=== PATIENT | female | born 1980 | race Caucasian/White ===

== ENCOUNTER 2020-06-27 14:20 | Outpatient (CLI) | payer OTHER | END 2020-06-27 14:21 | disposition home or self-care (01) | LOC: LAB 14:20 | PROVIDERS: ATTEND Obstetrics & Gynecology | DX: D35.2 Benign neoplasm of pituitary gland (principal) | CPT/HCPCS: 36415; 84146 ==

== ENCOUNTER 2020-08-07 08:00 | Outpatient (CLI) | payer OTHER | END 2020-08-07 23:59 | disposition home or self-care (01) | LOC: LAB.WC 08:00 | PROVIDERS: ATTEND Obstetrics & Gynecology | DX: Z36.85 Encounter for antenatal screening for Streptococcus B (principal) | CPT/HCPCS: 87797 ==

== ENCOUNTER 2020-08-12 09:23 | Outpatient (CLI) | payer OTHER ==
[2020-08-12 09:43] VITALS: BP 117/72
--- NOTE | 2020-09-02 20:07 | PROCEDURE REPORT ---
- HPI Current EDU 09/03/20 Gestation 36 Weeks and 6 Days 3 Para 1 Vital Signs Temperature 98.6 F 08/12/20 09:42 Heart Rate 102 H 08/12/20 09:42 Respiratory Rate 18 08/12/20 09:42 Blood Pressure 117/72 08/12/20 09:42 O2 Saturation 98 08/12/20 09:42 Temperature 98.6 F 08/12/20 09:42 Heart Rate 102 H 08/12/20 09:42 Respiratory Rate 18 08/12/20 09:42 Blood Pressure 117/72 08/12/20 09:42 O2 Saturation 98 08/12/20 09:42 - NST Procedure NST Procedure Start Date 08/12/20 Start Time 09:30 Stop Time 10:29 Vibroacoustic Stimulation Used Yes: x1 Patient States Movement Yes EFM 135 mod maria d 15x15 accels no decels TOCO: quiet - Results and Plan Findings/Impression: 40 yo at 36+6 wga with a affected by BMI> 50, AGA, and pituitary adenoma here of rNAT Cat I tracing Cont with twice weekly NST and weekly ROSALIND DX: AGA BMI> 50 pituitary adenoma IUP at 36+6 wga
== END 2020-08-12 10:45 | disposition home or self-care (01) ==
LOC: WFO 09:23 → FBP 09:29 → WFO 10:45
PROVIDERS: ATTEND Obstetrics & Gynecology
DX: O99.283 Endocrine, nutritional and metabolic diseases complicating pregnancy, third trimester (principal); D44.3 Neoplasm of uncertain behavior of pituitary gland; Z3A.36 36 weeks gestation of pregnancy
CPT/HCPCS: 59025

== ENCOUNTER 2020-08-15 15:37 | Outpatient (CLI) | payer OTHER ==
[2020-08-15 15:56] VITALS: BP 123/70
--- NOTE | 2020-08-15 16:52 | PROCEDURE REPORT ---
- HPI Diagnosis/Indication for NST: Other (AMA) Current EDU 09/03/20 Gestation 37 Weeks and 2 Days 3 Para 1 Vital Signs Temperature 36.6 C 08/15/20 15:55 Heart Rate 86 08/15/20 15:55 Respiratory Rate 18 08/15/20 15:55 Blood Pressure 123/70 08/15/20 15:55 O2 Saturation 99 08/15/20 15:55 Temperature 36.6 C 08/15/20 15:55 Heart Rate 86 08/15/20 15:55 Respiratory Rate 18 08/15/20 15:55 Blood Pressure 123/70 08/15/20 15:55 O2 Saturation 99 08/15/20 15:55 - NST Procedure NST Procedure Start Date 08/15/20 Start Time 15:47 Stop Time 16:32 Vibroacoustic Stimulation Used No Patient States Movement Yes - Results and Plan Findings/Impression: REACTIVE NST Plan: CONTINUE TESTING
== END 2020-08-15 16:35 | disposition home or self-care (01) ==
LOC: WFO 15:37 → FBP 15:42 → WFO 16:35
PROVIDERS: ATTEND Obstetrics & Gynecology
DX: O09.523 Supervision of elderly multigravida, third trimester (principal); Z3A.37 37 weeks gestation of pregnancy
CPT/HCPCS: 59025

== ENCOUNTER 2020-08-19 12:53 | Outpatient (CLI) | payer OTHER ==
[2020-08-19 13:23] VITALS: BP 137/57
--- NOTE | 2020-09-02 20:12 | PROCEDURE REPORT ---
- HPI Diagnosis/Indication for NST: Other Current EDU 09/03/20 Gestation 37 Weeks and 6 Days 2 Para 1 Vital Signs Temperature 98.3 F 08/19/20 13:22 Heart Rate 94 08/19/20 13:22 Respiratory Rate 18 08/19/20 13:22 Blood Pressure 137/57 H 08/19/20 13:22 Temperature 98.3 F 08/19/20 13:22 Heart Rate 94 08/19/20 13:22 Respiratory Rate 18 08/19/20 13:22 Blood Pressure 137/57 H 08/19/20 13:22 O2 Saturation - NST Procedure NST Procedure Start Date 08/19/20 Start Time 13:07 Stop Time 13:37 Vibroacoustic Stimulation Used No EFM 150 mod maria d 15x15 accels no decels TOCO: quiet - Results and Plan Findings/Impression: 40 yo at 37+6 wga with complicated by BMI>50, pituitary adenoma, AMA here for NST Cat I tracing Cont with twice weekly NST and weekly ROSALIND per primary OB provider plan
== END 2020-08-19 13:40 | disposition home or self-care (01) ==
LOC: WFO 12:53 → FBP 12:59 → WFO 13:40
PROVIDERS: ATTEND Obstetrics & Gynecology
DX: O99.283 Endocrine, nutritional and metabolic diseases complicating pregnancy, third trimester (principal); D44.3 Neoplasm of uncertain behavior of pituitary gland; O09.523 Supervision of elderly multigravida, third trimester; Z3A.37 37 weeks gestation of pregnancy
CPT/HCPCS: 59025

== ENCOUNTER 2020-08-22 14:51 | Outpatient (CLI) | payer OTHER ==
[2020-08-22 17:33] LABS: BASOPHILS % (AUTO) 0.2 %; EOSINOPHILS # (AUTO) 0.1 10^3/uL (0.0-0.7); HCT - HEMATOCRIT 35.6 % (37.0-47.0); HGB - HEMOGLOBIN 11.2 g/dL (12.0-16.0); LYMPHOCYTES # (AUTO) 1.9 10^3/uL (1.5-3.5); LYMPHOCYTES % (AUTO) 13.8 %; MEAN CORPUSCULAR HGB CONC 31.5 g/dL (32.0-36.0); MEAN CORPUSCULAR VOLUME 82.8 fL (81.0-99.0); MEAN PLATELET VOLUME 9.8 fL (7.9-10.8); MONOCYTES # (AUTO) 0.8 10^3/uL (0.0-1.0); NEUTROPHILS # (AUTO) 10.4 10^3/uL (1.5-6.6); PLT - PLATELET COUNT 308 10^3/uL (130-450); RED CELL DISTRIBUTION WIDTH 14.1 % (12.0-15.0); WHITE BLOOD COUNT 13.4 x10^3/uL (4.8-10.8)
[2020-08-22 17:43] LABS: ALBUMIN/GLOBULIN RATIO 0.8 (1.0-2.2); BILIRUBIN,TOTAL 0.5 mg/dL (0.2-1.0); CALCIUM 9.1 mg/dL (8.5-10.3); CREATININE 0.6 mg/dL (0.4-1.0); POTASSIUM 3.8 mmol/L (3.5-5.0); TOTAL PROTEIN 6.7 g/dL (6.7-8.2)
[2020-08-22 17:56] LABS: CREATININE,URINE 38.2 mg/dL
[2020-08-22 18:00] LABS: TOTAL PROTEIN,URINE TIMED < 6 mg/dL
[2020-08-22 18:09] VITALS: BP 125/63
--- NOTE | 2020-08-22 18:49 | PROVIDER PROGRESS NOTE ---
- HPI Chief Complaint: Hypertension/PIH Current : Current EDU 09/03/20 Gestation 38 Weeks and 2 Days 3 Para 1 Vital Signs Heart Rate 94 08/22/20 15:10 Respiratory Rate 17 08/22/20 15:10 Blood Pressure 145/73 H 08/22/20 15:10 O2 Saturation 100 08/22/20 15:10 Temperature 98.6 F 08/22/20 15:14 Heart Rate 92 08/22/20 17:09 Respiratory Rate 17 08/22/20 17:09 Blood Pressure 125/63 08/22/20 18:09 O2 Saturation 100 08/22/20 15:10 - Exam 40 yo at 38 2/7 weeks with Elevated blood pressure in the clinic today. Patient denies headache, abdominal pain or right upper quadrant pain. Patient reports good movement. Patient denies SROM, vaginal bleeding or contractions. O-132/84 was first blood pressure on arrival to L&D, 125/63 and 114/60. General: Patient is lying comfortably in triage bed and is not in any acute distress. Chest: CLear to auscultation. Good breath sounds in all harris. Heart: RRR without murmur or gallop Abdomen: Soft, non-tender to palpation, gravid. Extremities: No pedal or pre-tibial edema. Neuro: DTR's could no be illicited, definitely not hyper-reflexic Labs today were within normal range. Protein/Creat ratio: not detectable. Monitor strip Baseline 135 with moderate variability and accelerations. No decelerations. No contractions. Category I monitor strip and Reactive NST. Dr. Archuleta will contact patient in the morning with a plan for her induction of labor next Wednesday. - Procedures NST Procedure: NST Procedure Start Date 08/22/20 Start Time 15:00 Stop Time 15:55 Vibroacoustic Stimulation Used No Patient States Movement Yes
== END 2020-08-22 18:30 | disposition home or self-care (01) ==
LOC: WFO 14:51 → FBP 14:54 → WFO 15:55
PROVIDERS: ATTEND Obstetrics & Gynecology
DX: O13.3 Gestational [pregnancy-induced] hypertension without significant proteinuria, third trimester (principal); Z3A.38 38 weeks gestation of pregnancy
CPT/HCPCS: 36415; 59025; 80053; 82570; 84146; 84156; 85025; 86787; 87522; 99214; 99215

== ENCOUNTER 2020-08-24 09:29 | Outpatient (CLI) | payer OTHER ==
[2020-08-24 09:48] VITALS: BP 118/70
--- NOTE | 2020-08-24 10:40 | PROCEDURE REPORT ---
- HPI Diagnosis/Indication for NST: Gestational Hypertension Current EDU 09/03/20 Gestation 38 Weeks and 4 Days 3 Para 1 Vital Signs Temperature 98.4 F 08/24/20 09:45 Heart Rate 98 08/24/20 09:45 Respiratory Rate 18 08/24/20 09:45 Blood Pressure 118/70 08/24/20 09:45 O2 Saturation 98 08/24/20 09:45 Temperature 98.4 F 08/24/20 09:45 Heart Rate 98 08/24/20 09:45 Respiratory Rate 18 08/24/20 09:45 Blood Pressure 118/70 08/24/20 09:45 O2 Saturation 98 08/24/20 09:45 Patient is doing well. Patient is resting comfortably in triage bed. Patient denies SROM, vaginal bleeding or contractions. NST: Baselin FHR is 140 with moderate variability and Accelerations 15X15 times 2. No decelerations. No contractions. Category I monitor strip and meets Reactive Criteria for NST. - NST Procedure NST Procedure Start Date 08/24/20 Start Time 09:40 Stop Time 10:17 Vibroacoustic Stimulation Used No Patient States Movement Yes - Results and Plan Findings/Impression: Reactive NST, Category I monitor strip. Plan: Patient is scheduled on Wednesday for another NST. Labor precautions and High B lood pressure signs and symptoms precautions.
== END 2020-08-24 10:30 | disposition home or self-care (01) ==
LOC: WFO 09:29 → FBP 09:32 → WFO 10:30
PROVIDERS: ATTEND Obstetrics & Gynecology
DX: O13.3 Gestational [pregnancy-induced] hypertension without significant proteinuria, third trimester (principal); Z3A.38 38 weeks gestation of pregnancy
CPT/HCPCS: 59025

== ENCOUNTER 2020-08-26 09:28 | Outpatient (CLI) | payer OTHER ==
[2020-08-26 10:01] VITALS: BP 120/66
--- NOTE | 2020-08-26 10:47 | PROCEDURE REPORT ---
- HPI Current [facility] 09/03/20 Gestation 38 Weeks and 6 Days 3 Para 1 Vital Signs Temperature 98.6 F 08/26/20 09:39 Heart Rate 97 08/26/20 09:39 Respiratory Rate 18 08/26/20 09:39 Blood Pressure 120/66 08/26/20 09:39 O2 Saturation 97 08/26/20 09:39 Temperature 98.6 F 08/26/20 09:39 Heart Rate 97 08/26/20 09:39 Respiratory Rate 18 08/26/20 09:39 Blood Pressure 120/66 08/26/20 09:39 O2 Saturation 97 08/26/20 09:39 - NST Procedure NST Procedure Start Date 08/26/20 Start Time 09:39 Stop Time 10:17 Vibroacoustic Stimulation Used No Patient States Movement Yes Patient presents for NST. Patient is 38 6/7 weeks todayl. Discussed patient with Dr. Gamble. Patient has had normal range blood pressures and Protein/Creatinine ratio was undetectable last . All other labs were normal. Patient reports good movement. Patient denies contractions, SROM or vaginal bleeding. Patient states she had some swelling in her feet yesterday, but she was sitting for a prolonged period of time sorting baby clothes. She had a slight headache that resolved after she drank water. Discussed with patient since everything appears normal she does not meet criteria for "Medical Induction". Patient will continue with twice weekly NSTs and continue to be monitored. O-BP today is 122/60. NST: Baseline heart rate is 140 with moderate variability. Accelerations are present. No decelerations. No contractions seen. Category I and Reactive monitor strip. A-IUP 38 6/7 Blood pressure are no longer elevated. Normal lab. P-Continue twice weekly NST and blood pressure monitoring. Patient given labor precautions.
== END 2020-08-26 10:35 | disposition home or self-care (01) ==
LOC: WFO 09:28 → FBP 09:32 → WFO 10:35
PROVIDERS: ATTEND Obstetrics & Gynecology
DX: O09.523 Supervision of elderly multigravida, third trimester (principal); O36.63X0 Maternal care for excessive fetal growth, third trimester, not applicable or unspecified; O99.213 Obesity complicating pregnancy, third trimester; O99.353 Diseases of the nervous system complicating pregnancy, third trimester; D49.7 Neoplasm of unspecified behavior of endocrine glands and other parts of nervous system; O99.413 Diseases of the circulatory system complicating pregnancy, third trimester; I87.2 Venous insufficiency (chronic) (peripheral); Z3A.38 38 weeks gestation of pregnancy
CPT/HCPCS: 59025

== ENCOUNTER 2020-08-29 13:02 | Outpatient (CLI) | payer OTHER ==
[2020-08-29 13:14] VITALS: BP 127/67
--- NOTE | 2020-08-29 13:49 | PROCEDURE REPORT ---
- HPI Diagnosis/Indication for NST: Gestational Hypertension Vital Signs Temperature 98.2 F 08/29/20 13:12 Heart Rate 97 08/29/20 13:12 Respiratory Rate 20 08/29/20 13:12 Blood Pressure 127/67 08/29/20 13:12 O2 Saturation 100 08/29/20 13:12 Temperature 98.2 F 08/29/20 13:12 Heart Rate 97 08/29/20 13:12 Respiratory Rate 20 08/29/20 13:12 Blood Pressure 127/67 08/29/20 13:12 O2 Saturation 100 08/29/20 13:12 Patient is 40yo 39 2/7 weeks, Good movement. No regular contractions. Patient denies SROM or vaginal bleeding. BP today is 127/67. NST: Baseline is 140 with moderate variability and accelerations. No decelerations. Small amount of uterine irritability present. Patient is not feeling contractions at present time. 15X15 Accelerations. Category I monitor strip. Reactive NST. - NST Procedure NST Procedure Start Time 09:39 Stop Time 10:19 - Results and Plan Findings/Impression: IUP 39 2/7 with Gestational Hypertension P- Repeat NST on WednesdaySeptember 02 and Induction of labor on WednesdaySeptember 03.
--- NOTE | 2020-08-29 13:56 | PROVIDER PROGRESS NOTE ---
- HPI Chief Complaint: Hypertension/PIH Current : Vital Signs Temperature 98.2 F 08/29/20 13:12 Heart Rate 97 08/29/20 13:12 Respiratory Rate 20 08/29/20 13:12 Blood Pressure 127/67 08/29/20 13:12 O2 Saturation 100 08/29/20 13:12 Temperature 98.2 F 08/29/20 13:12 Heart Rate 97 08/29/20 13:12 Respiratory Rate 20 08/29/20 13:12 Blood Pressure 127/67 08/29/20 13:12 O2 Saturation 100 08/29/20 13:12 - Exam Patient is doing well and has not has clinic visit since last week. Patient denies SROM, vaginal bleeding. Patient had a few contractions last evening. Patient is not feeling them today. Patient reports good movement. Patient had NST that is Category I and Reactive. Patient denies headache, blurred vision or upper abdominal pain. O 127/67 Chest: Clear to auscultation. Good breath sounds in all harris. Heart: RRR without murmur or gallop. Abdomen: Soft, non-tender, gravid. 42cm if fundal height. Extremities: No pre-tibial or pedal pitting edema. There is small amount of edema in right pretibial area that is non-pitting. Neuro: Cannot illicit DTR's on patient. A- IUP 39 2/7 with Gestational Hypertension P- Labor precautions, Repeat NST on Wednesday and Induction of Labor on Wednesday. - Procedures Diagnosis/Indication for NST: Gestational Hypertension NST Procedure: NST Procedure Start Time 09:39 Stop Time 10:19
== END 2020-08-29 14:00 | disposition home or self-care (01) ==
LOC: WFO 13:02 → FBP 13:05 → WFO 14:00
PROVIDERS: ATTEND Obstetrics & Gynecology
DX: O13.3 Gestational [pregnancy-induced] hypertension without significant proteinuria, third trimester (principal); Z3A.39 39 weeks gestation of pregnancy
CPT/HCPCS: 59025; 99213

== ENCOUNTER 2020-09-02 09:32 | Outpatient (CLI) | payer OTHER ==
[2020-09-02 10:07] VITALS: BP 118/84
--- NOTE | 2020-09-02 19:30 | PROCEDURE REPORT ---
- HPI Diagnosis/Indication for NST: Other (BMI > 50, pituitary macroadenoma) Current EDU 09/03/20 Gestation 39 Weeks and 6 Days 3 Para 2 Vital Signs Temperature 98.6 F 09/02/20 10:05 Heart Rate 92 09/02/20 10:05 Respiratory Rate 18 09/02/20 10:05 Blood Pressure 118/84 H 09/02/20 10:05 Temperature 98.6 F 09/02/20 11:19 Heart Rate 92 09/02/20 11:19 Respiratory Rate 18 09/02/20 11:19 Blood Pressure 118/84 H 09/02/20 11:19 O2 Saturation - NST Procedure NST Procedure Start Date 09/02/20 Start Time 09:45 Stop Time 10:38 Vibroacoustic Stimulation Used No Patient States Movement Yes EFM 135 mod maria d 15x15 accels no decels TOCO: irritable - Results and Plan Findings/Impression: Patient is a 40 yo at 39+6 wga with complicated by pituitary adenoma, BMI >50, and AMA Cat I tracing Underwent anesthesia consult today Primary OB provider arranging for place of delivery for IOL
== END 2020-09-02 11:00 | disposition home or self-care (01) ==
LOC: WFO 09:32 → FBP 09:36 → WFO 11:00
PROVIDERS: ATTEND Obstetrics & Gynecology
DX: O99.891 Other specified diseases and conditions complicating pregnancy (principal); D35.2 Benign neoplasm of pituitary gland; O09.523 Supervision of elderly multigravida, third trimester; Z3A.39 39 weeks gestation of pregnancy
CPT/HCPCS: 59025

== ENCOUNTER 2020-10-02 09:06 | Outpatient (CLI) | payer OTHER ==
[2020-10-02 10:10] LABS: HGB - HEMOGLOBIN 10.7 g/dL (12.0-16.0); MEAN CORPUSCULAR HEMOGLOBIN 25.4 pg (27.0-31.0); MEAN CORPUSCULAR HGB CONC 30.6 g/dL (32.0-36.0); MEAN CORPUSCULAR VOLUME 83.1 fL (81.0-99.0); MEAN PLATELET VOLUME 8.4 fL (7.9-10.8); RED BLOOD COUNT 4.21 10^6/uL (4.20-5.40); RED CELL DISTRIBUTION WIDTH 15.6 % (12.0-15.0); WHITE BLOOD COUNT 8.2 x10^3/uL (4.8-10.8)
== END 2020-10-02 09:07 | disposition home or self-care (01) ==
LOC: LAB 09:06
PROVIDERS: ATTEND Obstetrics & Gynecology
DX: O72.1 Other immediate postpartum hemorrhage (principal)
CPT/HCPCS: 36415; 84146; 85027

== ENCOUNTER 2022-06-01 11:46 | Emergency (ER) | payer OTHER ==
[2022-06-01 12:01] VITALS: BP 145/90
[2022-06-01] MEDS ORDERED: RHO(D) IMMUNE GLOBULIN 300 MCG SYRINGE IM ONE (12:40)
[2022-06-01 12:51] LABS: BASOPHILS % (AUTO) 0.4 %; EOSINOPHILS # (AUTO) 0.4 10^3/uL (0.0-0.7); EOSINOPHILS % (AUTO) 3.7 %; HCT - HEMATOCRIT 39.7 % (37.0-47.0); HGB - HEMOGLOBIN 12.4 g/dL (12.0-16.0); LYMPHOCYTES # (AUTO) 2.7 10^3/uL (1.5-3.5); LYMPHOCYTES % (AUTO) 27.9 %; MEAN CORPUSCULAR HEMOGLOBIN 25.2 pg (27.0-31.0); MEAN CORPUSCULAR HGB CONC 31.2 g/dL (32.0-36.0); MEAN CORPUSCULAR VOLUME 80.7 fL (81.0-99.0); MEAN PLATELET VOLUME 8.4 fL (7.9-10.8); MONOCYTES # (AUTO) 0.5 10^3/uL (0.0-1.0); NEUTROPHILS # (AUTO) 6.1 10^3/uL (1.5-6.6); NEUTROPHILS % (AUTO) 62.9 %; PLT - PLATELET COUNT 388 10^3/uL (130-450); RED BLOOD COUNT 4.92 10^6/uL (4.20-5.40); RED CELL DISTRIBUTION WIDTH 15.9 % (12.0-15.0); WHITE BLOOD COUNT 9.7 x10^3/uL (4.8-10.8)
--- NOTE | 2022-06-01 12:59 | ED Physician Documentation ---
History of Present Illness - Stated complaint Stated Complaint: FEMALE - Chief complaint Chief Complaint: General - History obtained from History obtained from: Patient - History of Present Illness Timing: Today Pain level max: 0 Pain level now: 0 - Additonal information Additional information: 42-year-old female states that she had a positive hCG about a week ago with her doctor. She does not know what the number was. She states that she was having some vaginal bleeding at that time which has since resolved. She had a repeat hCG on Wednesday which was down to 24. She states that her doctor [place] the [employer] [place] wanted her to come to the emergency department today for another hCG and RhoGAM since she is Rh-. Patient is not currently having any bleeding, cramping. Currently asymptomatic. Review of Systems Constitutional: denies: Fever GI: denies: Vomiting Skin: denies: Rash Musculoskeletal: denies: Neck pain, Back pain Neurologic: denies: Headache PD PAST MEDICAL HISTORY - Past Medical History Past Medical History: Yes Other Past Medical History: environmental allergies - Allergies Allergies/Adverse Reactions: Allergies Allergy/AdvReac Type Severity Reaction Status Date / Time No Known Drug Allergies Allergy Verified 06/01/22 12:01 - Living Situation Living Situation: reports: With family Living Arrangement: reports: At home - Social History Does the pt smoke?: No PD ED PE NORMAL - Vitals Vital signs reviewed: Yes - General General: Alert and oriented X 3, No acute distress - HEENT HEENT: Moist mucous membranes - Neck Neck: Supple, no meningeal sign - Cardiac Cardiac: RRR, Strong equal pulses - Respiratory Respiratory: No respiratory distress, Clear bilaterally - Abdomen Abdomen: Soft, Non tender, Non distended - Derm Derm: Warm and dry - Extremities Extremities: No edema - Neuro Neuro: Alert and oriented X 3 Results - Vitals Vitals: Vital Signs - 24 hr 06/01/22 11:58 Temperature 36.2 C L Heart Rate 75 Respiratory 20 Rate Blood Pressure 145/90 H O2 Saturation 99 Oxygen O2 Source Room air - Labs Labs: Laboratory Tests 06/01/22 06/01/22 06/01/22 12:45 12:45 12:45 WBC 9.7 RBC 4.92 Hgb 12.4 Hct 39.7 MCV 80.7 L MCH 25.2 L MCHC 31.2 L RDW 15.9 H Plt Count 388 MPV 8.4 Neut # (Auto) 6.1 Lymph # (Auto) 2.7 [place] # (Auto) 0.5 Eos # (Auto) 0.4 Baso # (Auto) 0.0 Absolute Nucleated RBC 0.00 Nucleated RBC % 0.0 Sodium 136 Potassium 4.1 Chloride 103 Carbon Dioxide 25 Anion Gap 8.0 BUN 18 Creatinine 0.7 Estimated GFR (MDRD) 92 Glucose 91 Calcium 9.0 Total Bilirubin 0.6 AST 17 ALT 13 Alkaline Phosphatase 78 Total Protein 7.4 Albumin 4.1 Globulin 3.3 Albumin/Globulin Ratio 1.2 HCG, Quant 8.90 Blood Type 06/01/22 12:45 WBC RBC Hgb Hct MCV MCH MCHC RDW Plt Count MPV Neut # (Auto) Lymph # (Auto) [place] # (Auto) Eos # (Auto) Baso # (Auto) Absolute Nucleated RBC Nucleated RBC % Sodium Potassium Chloride Carbon Dioxide Anion Gap BUN Creatinine Estimated GFR (MDRD) Glucose Calcium Total Bilirubin AST ALT Alkaline Phosphatase Total Protein Albumin Globulin Albumin/Globulin Ratio HCG, Quant Blood Type A NEGATIVE PD Medical Decision Making - ED course Complexity details: reviewed results, re-evaluated patient, considered differential, d/w patient, d/w datapower consultant ED course: Patient's hCG is down to 8.9, consistent with a miscarriage. Discussed the case with OB on-call, Dr. Garcia, He recommends giving RhoGAM. We apparently only have Rhophylac here, this does not carry the distinction between miscarriage under 13 weeks and over 13 weeks, therefore the full dosage was given. Patient is currently asymptomatic. No indication for emergent ultrasound. We will have her follow-up with her doctor for further care. Patient counseled regarding signs and symptoms for which I believe and urgent re-evaluation would be necessary. Patient with good understanding of and agreement to plan and is comfortable going home at this time This document was made in part using voice recognition software. While efforts are made to proofread this document, sound alike and grammatical errors may occur. Departure - Departure Disposition: 01 Home, Self Care Clinical Impression: Miscarriage Condition: Good Instructions: ED Miscarriage Completed Follow-Up: your,doctor in 1 week [Other] Comments: Your repeat hCG is 8.9, this is consistent with a miscarriage. You were given RhoGAM today. Please follow-up with your doctor for further care. Return if you worsen. Discharge Date/Time: 06/01/22 13:51
[2022-06-01 13:07] LABS: ALBUMIN 4.1 g/dL (3.2-5.5); ALBUMIN/GLOBULIN RATIO 1.2 (1.0-2.2); BILIRUBIN,TOTAL 0.6 mg/dL (0.2-1.0); CREATININE 0.7 mg/dL (0.4-1.0); POTASSIUM 4.1 mmol/L (3.5-5.0); TOTAL PROTEIN 7.4 g/dL (6.7-8.2)
== END 2022-06-01 13:51 | disposition home or self-care (01) ==
LOC: ED 11:46
DX: O03.9 Complete or unspecified spontaneous abortion without complication (principal)
CPT/HCPCS: 36415; 80053; 84702; 85025; 85460; 86900; 86901; 96372; 99283; 99284